=== PATIENT | male | born 1955 | race Caucasian/White ===

== ENCOUNTER → 2018-11-22 | Outpatient (CLI) | payer OTHER ==
[~2018-11-22] MED LIST: IOHEXOL 240 MG/ML 50ML VIAL. ONE; IOHEXOL 240 MG/ML 50ML VIAL. PO ONE; IOHEXOL 300 MG/ML 75 ML VIAL. IV ONE
--- NOTE | 2018-11-22 16:20 | RAD ---
Examination: CT ABD PELV W/ORAL IV CONTRAST History: Pancreatic lesion, pancreatitis Comparison/Correlation: 09/27/2018 CT abdomen and pelvis with oral and IV contrast Findings: Axial images of the abdomen and pelvis were obtained following IV and oral contrast. Sagittal and coronal reformatted images were provided. Measures and bases are clear. Liver, spleen, adrenal glands, and kidneys are normal. At the pancreatic uncinate, there is a 1 cm diameter hypoenhancing lesion There is no extraluminal gas. Cholecystectomy evident. No bowel obstruction. Appendix is normal. Very minimal diverticulosis may present. Urinary bladder is mostly decompressed which may account for circumferential wall thickening. No enlarged abdominal or pelvic lymph nodes. No ascites or pelvic free fluid. Moderate to severe L4-5 disc space narrowing is present with concentric disc bulge. Severe L5-S1 disc space narrowing is present. Impression: No significant inflammatory changes identified about the pancreas. Resolution of previously noted inflammation. Hypoenhancing lesion in the pancreatic uncinate which likely represents a pseudocyst or other benign process is new since the prior exam. Consider interval follow-up in 6 months to assess stability. There is a described pancreatic body hypoattenuation is no longer evident. PQRS Compliance Statement: One or more of the following individualized dose reduction techniques were utilized for this examination: 1. Automated exposure control 2. Adjustment of the mA and/or kV according to patient size 3. Use of iterative reconstruction technique Electronically signed by: Philipp Barrientos MD (11/22/2018 4:17 PM) [facility]
== END | disposition home or self-care (01) ==
LOC: CT 08:15
PROVIDERS: ATTEND Internal Medicine Gastroenterology
DX: K86.89 Other specified diseases of pancreas (principal); K85.90 Acute pancreatitis without necrosis or infection, unspecified; M48.07 Spinal stenosis, lumbosacral region; Z90.49 Acquired absence of other specified parts of digestive tract
CPT/HCPCS: 74177; Q9966; Q9967